=== PATIENT | male | born 1995 | race Caucasian/White ===

== ENCOUNTER 2021-11-15 14:23 | Emergency (ER) | payer OTHER ==
[~2021-11-15] VITALS: Ht 177.8 cm; Wt 78.0 kg
[2021-11-15 14:42] VITALS: BP 136/87
[2021-11-15] MEDS ORDERED: TOPUD MT (16:27)
== END 2021-11-15 17:07 | disposition home or self-care (01) ==
LOC: ER 14:23
DX: S01.511A Laceration without foreign body of lip, initial encounter (principal); Y08.89XA Assault by other specified means, initial encounter; Y93.89 Activity, other specified; Y92.89 Other specified places as the place of occurrence of the external cause; Y99.8 Other external cause status
CPT/HCPCS: 70486; 99284